=== PATIENT | female | born 1970 | race Caucasian/White ===

== ENCOUNTER 2025-05-25 19:02 | Emergency (ER) | payer BC ==
[~2025-05-25] VITALS: Ht 157.5 cm; Wt 47.7 kg
[2025-05-25 20:12] LABS: PLATELET COUNT, AUTOMATED 229 10^3/uL (150-450)
[2025-05-25 20:30] LABS: SALICYLATE LEVEL < 3.0 MG/DL (<30)
[2025-05-25 20:39] LABS: BARBITURATES URINE NEGATIVE (NEGATIVE); COCAINE METABOLITE URINE NEGATIVE (NEGATIVE); METHADONE URINE NEGATIVE (NEGATIVE); OPIATES URINE NEGATIVE (NEGATIVE); PHENCYCLIDINE URINE NEGATIVE (NEGATIVE)
[2025-05-25 20:40] LABS: AMPHETAMINES LEVEL URINE NEGATIVE (NEGATIVE); BENZODIAZEPINES URINE NEGATIVE (NEGATIVE); CANNABINOIDS URINE NEGATIVE (NEGATIVE)
[2025-05-25 20:42] LABS: ALT/SGPT 21 U/L (7.0-40); AST/SGOT 45 U/L (<34); CALCIUM LEVEL 8.4 MG/DL (8.5-10.1); CARBON DIOXIDE LEVEL 18 MMOL/L (20-31); CHLORIDE LEVEL 110 MMOL/L (98-107); CREATININE FOR GFR 0.53 MG/DL (0.55-1.30); ETHYL ALCOHOL (ETHANOL) 0.350 % (0.000-0.010); GLOMERULAR FILTRATION RATE > 90.0 (>51); POTASSIUM SERUM 4.0 MMOL/L (3.5-5.1); SODIUM LEVEL 140 MMOL/L (136-145)
[2025-05-26] MEDS: THIAMINE 100 MG TAB PO SCH (08:04)
[2025-05-26] MEDS: MULTIVITAMINS/MINERALS THERAP 1 TAB PO SCH (08:04)
[2025-05-26] MEDS: OXAZEPAM 15MG CAP PO ONE (08:04)
[2025-05-26] MEDS: FOLIC ACID 1 MG TAB PO SCH (08:04)
[2025-05-26] MEDS ORDERED: IBUP80TA PO (09:16)
[2025-05-26] MEDS ORDERED: LORA-1164 PO (09:16)
[2025-05-26] MEDS ORDERED: GABA-1172 PO (09:16)
[2025-05-26] MEDS ORDERED: ACET-683 PO (09:16)
[2025-05-26] MEDS ORDERED: OMEP40CA5 PO (09:16)
[2025-05-26] MEDS ORDERED: HOME MED LIST COMPLETE! XX SCH (09:20)
[2025-05-26] MEDS: GABAPENTIN 300 MG CAP PO SCH (09:45)
[2025-05-26] MEDS: LORATADINE 10 MG TAB PO SCH (09:45)
[2025-05-26] MEDS: OMEPRAZOLE 20MG CAP PO SCH (09:45)
[2025-05-26 13:45] VITALS: BP 135/80; TEMP 98.1; O2SAT 97
== END 2025-05-26 13:47 | disposition home or self-care (01) ==
LOC: M ED 19:02
DX: F10.10 Alcohol abuse, uncomplicated (principal); I10 Essential (primary) hypertension; Z79.1 Long term (current) use of non-steroidal anti-inflammatories (NSAID); Z79.899 Other long term (current) drug therapy

== ENCOUNTER 2025-06-06 19:35 | Emergency (ER) | payer BC ==
[~2025-06-06] VITALS: Ht 160 cm; Wt 49.3 kg
[~2025-06-06 19:35] MED LIST: ACET-683 PO; GABA-1172 PO; IBUP80TA PO; LORA-1164 PO; OMEP40CA5 PO
[2025-06-06 20:04] LABS: BASO # 0.0 10^3/uL (0.0-0.2); BASO % 0.4 % (0.0-1.0); EOS # 0.1 10^3/uL (0.0-0.5); EOS % 0.9 % (0.0-3.0); LYMPH # 3.3 10^3/uL (1.5-5.0); LYMPH % 31.4 % (24.0-44.0); MONO # 1.2 10^3/uL (0.0-0.8); MONO % 11.7 % (2.0-8.0); NEUTROPHILS # 5.9 10^3/uL (1.5-8.5); NEUTROPHILS % 55.3 % (36.0-66.0); PLATELET COUNT, AUTOMATED 454 10^3/uL (150-450)
[2025-06-06] MEDS ORDERED: ISOVUE-370 76% 100 ML VIAL As Ordered ONE (20:28)
[2025-06-06 20:39] LABS: ETHYL ALCOHOL (ETHANOL) 0.220 % (0.000-0.010)
[2025-06-06 20:41] LABS: ALT/SGPT 10 U/L (7.0-40); AST/SGOT 19 U/L (<34); CALCIUM LEVEL 8.8 MG/DL (8.5-10.1); CARBON DIOXIDE LEVEL 20 MMOL/L (20-31); CHLORIDE LEVEL 103 MMOL/L (98-107); CREATININE FOR GFR 0.59 MG/DL (0.55-1.30); GLOMERULAR FILTRATION RATE > 90.0 (>51); MAGNESIUM LEVEL 1.5 MG/DL (1.8-2.4); POTASSIUM SERUM 4.0 MMOL/L (3.5-5.1); SODIUM LEVEL 135 MMOL/L (136-145)
[2025-06-06 20:47] LABS: MONO SCRN NEGATIVE (NEGATIVE)
[2025-06-06] MEDS: diphenhydrAMINE 50 MG/ML VIAL IV STA (21:06)
[2025-06-06] MEDS: FAMOTIDINE 20 MG/2 ML VIAL IVP ONE (21:06)
[2025-06-06] MEDS: AMPICILLIN SOD/SULBACTAM SOD 3 GM in DEXTROSE 5% (D5W) MINI-BAG PLU 100 ML IV ONE (22:48)
[2025-06-06] MEDS: MAG SULF 1GM/100ML (MAG RUN) 1 GM in IV 1 EA IV ONE (23:19)
[2025-06-06] MEDS ORDERED: PEPC1TAB5 PO (23:44)
[2025-06-06] MEDS ORDERED: PRED20TA PO (23:44)
[2025-06-06] MEDS ORDERED: AMOX500C PO (23:44)
[2025-06-06] MEDS ORDERED: BENA25CA4 PO (23:44)
[2025-06-07 00:15] VITALS: BP 104/61; TEMP 97.9; O2SAT 96
== END 2025-06-07 00:15 | disposition home or self-care (01) ==
LOC: EDBD 19:35 → M ED 19:35
DX: J03.90 Acute tonsillitis, unspecified (principal); F10.120 Alcohol abuse with intoxication, uncomplicated; T78.40XA Allergy, unspecified, initial encounter; K21.9 Gastro-esophageal reflux disease without esophagitis; F17.210 Nicotine dependence, cigarettes, uncomplicated; Z79.1 Long term (current) use of non-steroidal anti-inflammatories (NSAID); Z79.2 Long term (current) use of antibiotics; Z79.899 Other long term (current) drug therapy; Z79.52 Long term (current) use of systemic steroids
CPT/HCPCS: 70491; 80053; 82077; 83605; 83690; 83735; 84145; 85025; 86308; 87040; 87880; 96365; 96375; 99284; J0295; J1200; J1308; J2919; J3475; Q9967

== ENCOUNTER 2025-06-24 12:30 | Emergency (ER) | payer BC ==
[~2025-06-24] VITALS: Ht 157.5 cm; Wt 47.7 kg
[~2025-06-24 12:30] MED LIST changes: +AMOX500C PO; +BENA25CA4 PO; +PEPC1TAB5 PO; +PRED20TA PO
[2025-06-24 13:57] LABS: BASO # 0.0 10^3/uL (0.0-0.2); BASO % 0.2 % (0.0-1.0); EOS # 0.1 10^3/uL (0.0-0.5); EOS % 1.7 % (0.0-3.0); LYMPH # 1.6 10^3/uL (1.5-5.0); LYMPH % 34.2 % (24.0-44.0); MONO # 0.7 10^3/uL (0.0-0.8); MONO % 14.1 % (2.0-8.0); NEUTROPHILS # 2.3 10^3/uL (1.5-8.5); NEUTROPHILS % 49.6 % (36.0-66.0); PLATELET COUNT, AUTOMATED 206 10^3/uL (150-450)
[2025-06-24 14:20] LABS: ALT/SGPT 14 U/L (7.0-40); AST/SGOT 22 U/L (<34); CALCIUM LEVEL 7.9 MG/DL (8.5-10.1); CARBON DIOXIDE LEVEL 21 MMOL/L (20-31); CHLORIDE LEVEL 111 MMOL/L (98-107); CREATININE FOR GFR 0.48 MG/DL (0.55-1.30); GLOMERULAR FILTRATION RATE > 90.0 (>51); POTASSIUM SERUM 3.9 MMOL/L (3.5-5.1); SODIUM LEVEL 144 MMOL/L (136-145)
[2025-06-24] MEDS ORDERED: ISOVUE-370 76% 100 ML VIAL As Ordered ONE (15:51)
[2025-06-24] MEDS: OXAZEPAM 15MG CAP PO ONE (16:43)
[2025-06-24 17:55] VITALS: TEMP 96.8; O2SAT 95
[2025-06-24 17:59] VITALS: BP 132/78
[2025-06-24] MEDS ORDERED: OXAZ30CA2 PO (18:08)
== END 2025-06-24 18:22 | disposition home or self-care (01) ==
LOC: M ED 12:30 → EDBD 12:30 → M ED 18:22
DX: U07.1 COVID-19 (principal); F10.130 Alcohol abuse with withdrawal, uncomplicated; J03.90 Acute tonsillitis, unspecified; S42.032A Displaced fracture of lateral end of left clavicle, initial encounter for closed fracture; Y92.9 Unspecified place or not applicable; Y93.9 Activity, unspecified; Y99.9 Unspecified external cause status; I45.10 Unspecified right bundle-branch block; I10 Essential (primary) hypertension; K21.9 Gastro-esophageal reflux disease without esophagitis; Z79.1 Long term (current) use of non-steroidal anti-inflammatories (NSAID); Z79.2 Long term (current) use of antibiotics; Z79.899 Other long term (current) drug therapy
CPT/HCPCS: 36415; 70491; 71045; 73000; 80048; 80076; 83605; 84145; 85025; 87040; 87486; 87581; 87633; 87798; 87880; 93005; 93041; 94760; 99285; Q9967

== ENCOUNTER → 2025-07-07 | Outpatient (CLI) | payer BC ==
[~2025-07-07] MED LIST changes: +OXAZ30CA2 PO
== END ==
LOC: M SOG 07:44
PROVIDERS: ATTEND Orthopaedic Surgery
DX: Z53.9 Procedure and treatment not carried out, unspecified reason (principal)